=== PATIENT | female | born 1960 | race African-American/Black ===

== ENCOUNTER → 2020-12-08 | Outpatient (CLI) | payer OTHER ==
--- NOTE | 2020-12-09 12:34 | RAD ---
EXAM: BILATERAL DIGITAL SCREENING MAMMOGRAPHY. HISTORY: Routine mammographic screening. TECHNIQUE: Bilateral full field digital images were obtained in CC and MLO projections. Computer-aide d detection was applied. COMPARISON: 03/13/2018. COMPOSITION: A. The breasts are almost entirely fatty. FINDINGS: An immediately subcutaneous nodule in the left axilla measures 7 mm and appears to contain a coarse calcification. A cutaneous associated lesion is suspected. This was not included in the prev ious [id number]. Bilateral axillary lymph nodes are prominent but stable in their included portion s. Scattered calcifications are benign. There are no suspicious masses, microcalcifications or e commerce architect ural distortion. The parenchymal pattern is stable. BI-RADS CATEGORY 2: Benign. RECOMMENDATION: 1. Routine screening mammography in one year. 2. Prominent bilateral axillary lymph nodes appears stable. Correlate clinically for causes. 3. A partially calcified 7 mm subcutaneous nodule in the left axilla is likely a cutaneous associated lesion. Correlate clinically. Electronically signed by: Tevin Barrera MD (12/09/2020 12:31 PM) [id number]
== END ==
LOC: MAMMO 11:15 → EDSEX 11:15
PROVIDERS: ATTEND Family Medicine
DX: Z12.31 Encounter for screening mammogram for malignant neoplasm of breast (principal)
CPT/HCPCS: 77067